=== PATIENT | female | born 1980 | race Caucasian/White ===

== ENCOUNTER 2017-11-10 09:11 | Inpatient (IN) | payer MEDICARE, MEDICAID ==
[2017-11-10] MEDS ORDERED: NORMAL SALINE 1000 ML 1,000 ML IV ONE ×3 (09:42→19:00)
--- NOTE | 2017-11-10 09:47 | ER Document Report ---
ED General - General Stated Complaint: ALTERED LOC Time Seen by Provider: 11/10/17 09:32 Mode of Arrival: Ambulatory Information source: Emergency Med Personnel Cannot obtain history due to: Altered mental status Notes: 36-year-old female presents via EMS after being found in a ditch, altered. They report that a bystander stated to them that she has a seizure history but then quickly left. We have no history of this patient in our system. - HPI Onset: Just prior to arrival - This will be a really quick chart systems - Related Data Allergies/Adverse Reactions: No Known Allergies Allergy (Unverified 11/10/17 16:30) Past Medical History - General Information source: Patient Cannot obtain history due to: Altered mental status - Patient - Social History Smoking Status: Unknown if Ever Smoked Frequency of alcohol use: Heavy Drug Abuse: Methamphetamine Lives with: Alone Family History: Reviewed & Not Pertinent Review of Systems - Review of Systems -: Yes ROS unobtainable due to patient's medical condition Physical Exam - Vital signs Vitals: Resp Pulse Ox 17 96 11/10/17 09:18 11/10/17 09:18 - Notes Notes: PHYSICAL EXAMINATION: GENERAL: Altered, nonverbal HEAD: Atraumatic, normocephalic. EYES: Pupils equal round and reactive to light, conjunctiva are normal. ENT: Nares patent, oropharynx clear without exudates. Moist mucous membranes. NECK: Normal range of motion, supple without lymphadenopathy LUNGS: Breath sounds clear to auscultation bilaterally and equal. No wheezes rales or rhonchi. HEART: Regular rate and rhythm without murmurs ABDOMEN: Soft, nontender, nondistended abdomen. No guarding, no rebound. No masses appreciated. Female : deferred Musculoskeletal: Normal range of motion, no pitting or edema. No cyanosis. NEUROLOGICAL: Somnolent PSYCH: Altered SKIN: Warm, Dry, normal turgor, no rashes or lesions noted. Course - Re-evaluation Re-evalutation: Laboratory 11/10/17 11/10/17 11/10/17 09:49 09:49 09:49 WBC Cancelled RBC Cancelled Hgb Cancelled Hct Cancelled MCV Cancelled MCH Cancelled MCHC Cancelled RDW Cancelled Plt Count Cancelled Seg Neutrophils % Cancelled Lymphocytes % Cancelled Monocytes % Cancelled Eosinophils % Cancelled Basophils % Cancelled Absolute Neutrophils Cancelled Absolute Lymphocytes Cancelled Absolute Monocytes Cancelled Absolute Eosinophils Cancelled Absolute Basophils Cancelled Platelet Estimate Cancelled PT 13.5 INR 0.98 APTT 26.7 Sodium 138.5 Potassium 3.7 Chloride 103 Carbon Dioxide 24 Anion Gap 12 BUN 9 Creatinine 0.55 Est GFR ( Amer) > 60 Est GFR (Non-Af Amer) > 60 Glucose 153 H POC Glucose Calcium 8.7 Total Bilirubin 0.5 Direct Bilirubin 0.4 Neonat Total Bilirubin Not Reportable Neonat Direct Bilirubin Not Reportable Neonat Indirect Bili Not Reportable AST 94 H ALT 80 H Alkaline Phosphatase 57 Creatine Kinase 62 CK-MB (CK-2) Troponin I Total Protein 7.2 Albumin 3.7 Urine HCG, Qual Salicylates < 1.0 L Urine Opiates Screen Urine Methadone Screen Acetaminophen < 10 L Ur Barbiturates Screen Ur Phencyclidine Scrn Ur Amphetamines Screen U Benzodiazepines Scrn Urine Cocaine Screen U Marijuana (THC) Screen Serum Alcohol Slides for Path Review Cancelled 11/10/17 11/10/17 11/10/17 09:49 09:49 09:49 WBC RBC Hgb Hct MCV MCH MCHC RDW Plt Count Seg Neutrophils % Lymphocytes % Monocytes % Eosinophils % Basophils % Absolute Neutrophils Absolute Lymphocytes Absolute Monocytes Absolute Eosinophils Absolute Basophils Platelet Estimate PT INR APTT Sodium Potassium Chloride Carbon Dioxide Anion Gap BUN Creatinine Est GFR ( Amer) Est GFR (Non-Af Amer) Glucose POC Glucose Calcium Total Bilirubin Direct Bilirubin Neonat Total Bilirubin Neonat Direct Bilirubin Neonat Indirect Bili AST ALT Alkaline Phosphatase Creatine Kinase CK-MB (CK-2) Cancelled Troponin I Cancelled Total Protein Albumin Urine HCG, Qual NEGATIVE Salicylates Urine Opiates Screen UNCONFIRMED POSITIVE Urine Methadone Screen NEGATIVE Acetaminophen Ur Barbiturates Screen NEGATIVE Ur Phencyclidine Scrn NEGATIVE Ur Amphetamines Screen U Benzodiazepines Scrn UNCONFIRMED POSITIVE Urine Cocaine Screen NEGATIVE U Marijuana (THC) Screen NEGATIVE Serum Alcohol Slides for Path Review 11/10/17 11/10/17 11/10/17 09:49 10:56 11:02 WBC 2.7 L RBC 3.98 Hgb 10.4 L Hct 32.2 L MCV 81 MCH 26.1 L MCHC 32.2 RDW 20.6 H Plt Count 206 Seg Neutrophils % 66.6 Lymphocytes % 21.9 Monocytes % 10.3 Eosinophils % 0.7 Basophils % 0.5 Absolute Neutrophils 1.8 Absolute Lymphocytes 0.6 Absolute Monocytes 0.3 Absolute Eosinophils 0.0 Absolute Basophils 0.0 Platelet Estimate PT INR APTT Sodium Potassium Chloride Carbon Dioxide Anion Gap BUN Creatinine Est GFR ( Amer) Est GFR (Non-Af Amer) Glucose POC Glucose 138 H Calcium Total Bilirubin Direct Bilirubin Neonat Total Bilirubin Neonat Direct Bilirubin Neonat Indirect Bili AST ALT Alkaline Phosphatase Creatine Kinase CK-MB (CK-2) Troponin I Total Protein Albumin Urine HCG, Qual Salicylates Urine Opiates Screen Urine Methadone Screen Acetaminophen Ur Barbiturates Screen Ur Phencyclidine Scrn Ur Amphetamines Screen U Benzodiazepines Scrn Urine Cocaine Screen U Marijuana (THC) Screen Serum Alcohol < 10 Slides for Path Review 11/10/17 19:37 36-year-old female presents EMS after being found in a day which altered, combative. Bystanders stated that she had a seizure of history and then left. Upon arrival patient is somnolent but arousable. She does not answer questions. She is agitated. Vital signs stable upon arrival. Patient maintaining her airway. GCS 12. No family at the bedside for some time until hours later when her mother and stepfather arrived. They report a history of alcoholism, hepatitis c, seizure history. Patient's vital signs have remained stable. She has a normal heart rate, blood pressure and is not hypoxic. CBC does not show a white count. CMP shows normal renal function. She does have mildly elevated liver enzymes. Patient did receive 1 mg of Ativan early in her ED course and initially thought to be postictal but patient remained somnolent and has been unable to be discharged. CT of the head negative. patient accepted by the hospitalist for altered mental status. 11/10/17 19:37 11/10/17 19:41 11/12/17 23:42 - Vital Signs Vital signs: Temp Pulse Resp BP Pulse Ox 98.0 F 81 18 123/74 100 11/11/17 17:07 11/11/17 17:07 11/11/17 17:07 11/11/17 17:07 11/11/17 17:07 - Laboratory Result Diagrams: 11/11/17 04:46 11/11/17 04:46 Laboratory results interpreted by me: 11/10/17 11/10/17 11/10/17 09:49 10:56 11:02 WBC 2.7 L Hgb 10.4 L Hct 32.2 L MCH 26.1 L RDW 20.6 H Glucose 153 H POC Glucose 138 H AST 94 H ALT 80 H Salicylates < 1.0 L Acetaminophen < 10 L - Diagnostic Test Radiology reviewed: Image reviewed, Reports reviewed Discharge - Discharge Clinical Impression: Polysubstance (excluding opioids) dependence, Seizure, ETOH abuse Altered mental status Qualifiers: Altered mental status type: unspecified Qualified Code(s): R41.82 - Altered mental status, unspecified Condition: Good Disposition: ADMITTED INPATIENT Admitting Provider: Hospitalist Unit Admitted: Telemetry
[2017-11-10] MEDS ORDERED: ONDANSETRON HCL INJ/PF 4 MG/2 ML SDV IV ONE (10:08)
[2017-11-10 10:15] LABS: INTERNATIONAL RATION (INR) 0.98; PARTIAL THROMBOPLASTIN TIME 26.7 SEC (23.5-35.8); PROTHROMBIN TIME 13.5 SEC (11.4-15.4)
[2017-11-10 10:43] LABS: ALANINE AMINOTRANSFERASE 80 U/L (9-52); ALBUMIN 3.7 g/dL (3.5-5.0); ALKALINE PHOSPHATASE 57 U/L (38-126); ANION GAP 12 (5-19); ASPARTATE AMINO TRANSFERASE 94 U/L (14-36); BILIRUBIN,DIRECT 0.4 mg/dL (0.0-0.4); BILIRUBIN,TOTAL 0.5 mg/dL (0.2-1.3); BLOOD UREA NITROGEN 9 mg/dL (7-20); CALCIUM 8.7 mg/dL (8.4-10.2); CARBON DIOXIDE 24 mmol/L (22-30); CHLORIDE 103 mmol/L (98-107); CREATINE KINASE 62 U/L (30-135); GLUCOSE 153 mg/dL (75-110); POTASSIUM 3.7 mmol/L (3.6-5.0); SODIUM 138.5 mmol/L (137-145); TOTAL PROTEIN 7.2 g/dL (6.3-8.2)
[2017-11-10 10:45] LABS: ACETAMINOPHEN < 10 ug/mL (10-30); SALICYLATE < 1.0 mg/dL (2.0-20.0)
--- NOTE | 2017-11-10 10:46 | RADIOLOGY REPORT (SQ) ---
EXAM DESCRIPTION: CHEST SINGLE VIEW COMPLETED DATE/TIME: 11/10/2017 10:35 am REASON FOR STUDY: altered COMPARISON: None. EXAM PARAMETERS: NUMBER OF VIEWS: One view. TECHNIQUE: Single frontal radiographic view of the chest acquired. RADIATION DOSE: NA LIMITATIONS: None. FINDINGS: LUNGS AND PLEURA: No opacities, masses or pneumothorax. No pleural effusion. MEDIASTINUM AND HILAR STRUCTURES: No masses. Contour normal. HEART AND VASCULAR STRUCTURES: Heart normal in size. Normal vasculature. BONES: No acute findings. HARDWARE: None in the chest. OTHER: No other significant finding. IMPRESSION: NO ACUTE RADIOGRAPHIC FINDING IN THE CHEST. TECHNICAL DOCUMENTATION: JOB ID: [id number] [employer]- All Rights Reserved Reading location - IP/workstation name: [email or web address]
--- NOTE | 2017-11-10 10:51 | RADIOLOGY REPORT (SQ) ---
EXAM DESCRIPTION: CT HEAD WITHOUT COMPLETED DATE/TIME: 11/10/2017 10:40 am REASON FOR STUDY: altered COMPARISON: None. TECHNIQUE: Axial images acquired through the brain without intravenous contrast. Images reviewed wi th bone, brain and subdural windows. Additional sagittal and coronal reconstructions were generated. Images stored on PACS. All CT scanners at this facility use dose modulation, iterative reconstruction, and/or weight based d osing when appropriate to reduce radiation dose to as low as reasonably achievable (ALARA). [facility]: Dose Right [facility]: CareDose [facility]: Dose Right [facility]: Teradose 4D [facility]: Impres Medical RADIATION DOSE: CT Rad equipment meets quality standard of care and radiation dose reduction techniq ues were employed. CTDIvol: 53.2 mGy. DLP: 1070 mGy-cm. mGy. LIMITATIONS: None. FINDINGS: VENTRICLES: Normal size and contour. CEREBRUM: No masses. No hemorrhage. No midline shift. No evidence for acute infarction. Normal gra y/white matter differentiation. No areas of low density in the white matter. CEREBELLUM: No masses. No hemorrhage. No alteration of density. No evidence for acute infarction. EXTRAAXIAL SPACES: No fluid collections. No masses. ORBITS AND GLOBE: No intra- or extraconal masses. Normal contour of globe without masses. CALVARIUM: No fracture. PARANASAL SINUSES: Mucosal thickening is identified in both maxillary antra. SOFT TISSUES: No mass or hematoma. OTHER: No other significant finding. IMPRESSION: NORMAL BRAIN CT WITHOUT CONTRAST. EVIDENCE OF ACUTE STROKE: NO. COMMENT: Quality ID # [id number]: Final reports with documentation of one or more dose reduction techniques (e.g., Automated exposure control, adjustment of the mA and/or kV according to patient size, use of iterative reconstruction technique) TECHNICAL DOCUMENTATION: JOB ID: [id number] [employer]- All Rights Reserved Reading location - IP/workstation name: [email or web address]
[2017-11-10 11:03] LABS: URINE BARBITURATES SCREEN NEGATIVE; URINE BENZODIAZEPINES SCREEN UNCONFIRMED POSITIVE; URINE COCAINE SCREEN NEGATIVE; URINE MARIJUANA (THC) SCREEN NEGATIVE; URINE METHADONE SCREEN NEGATIVE; URINE PHENCYCLIDINE SCREEN NEGATIVE
[2017-11-10 11:20] LABS: ABSOLUTE LYMPHOCYTES (AUTO) 0.6 10^3/uL (0.5-4.7); ABSOLUTE MONOCYTES (AUTO) 0.3 10^3/uL (0.1-1.4); ABSOLUTE NEUT (AUTO) 1.8 10^3/uL (1.7-8.2); BASOPHILS % (AUTO) 0.5 % (0-2); EOSINOPHILS % (AUTO) 0.7 % (0-6); HEMATOCRIT 32.2 % (36.0-47.0); HEMOGLOBIN 10.4 g/dL (12.0-15.5); LYMPHOCYTES % (AUTO) 21.9 % (13-45); MEAN CORPUSCULAR HEMOGLOBIN 26.1 pg (27.0-33.4); MEAN CORPUSCULAR HGB CONC 32.2 g/dL (32.0-36.0); MEAN CORPUSCULAR VOLUME 81 fl (80-97); MONOCYTES % (AUTO) 10.3 % (3-13); PLATELET COUNT 206 10^3/uL (150-450); RED BLOOD COUNT 3.98 10^6/uL (3.72-5.28); RED CELL DISTRIBUTION WIDTH 20.6 % (11.5-14.0); SEGMENTED NEUTROPHILS % (AUTO) 66.6 % (42-78); TOTAL CELLS COUNTED % (AUTO) 100 %; WHITE BLOOD COUNT 2.7 10^3/uL (4.0-10.5)
[2017-11-10] MEDS ORDERED: METOCLOPRAMIDE HCL INJ/PF 10 MG/2 ML SDV IV ONE (11:44)
[2017-11-10] MEDS ORDERED: LAMOTRIGINE 100 MG TABLET PO ONE ×2 (12:04→15:00)
[2017-11-10] MEDS ORDERED: LORAZEPAM INJ 2 MG/1 ML VIAL ONE (13:47)
[2017-11-10] MEDS ORDERED: LORAZEPAM INJ 2 MG/1 ML VIAL IV ONE (13:48)
[2017-11-10] MEDS ORDERED: ONDANSETRON HCL INJ/PF 4 MG/2 ML SDV IV PRN (18:37)
[2017-11-10] MEDS ORDERED: ACETAMINOPHEN 650 MG SUPP.RECT PR PRN (18:47)
--- NOTE | 2017-11-10 19:21 | PDOC H&P ---
History of Present Illness Admission Date/PCP: NO PCP Patient complains of: ALTERED MENTAL STATUS History of Present Illness: ROGERIO KNOX is a 36 year old female who presented to [facility] with altered mental status. PMH includes bipolar disorder, ADHD, seizures, anxiety, EtOH dependence, suicide attempt. According to family, the patient was riding in the car with a friend, on her way to a doctor's appointment. The patient fell asleep in the car and when she woke up she began acting erratically. The patient attempted to jump out the car window. When the friend pulled the car over, the patient exited the vehicle and immediately vomited. She subsequently started pulling up the grass and attempting to eat it. Her friend then called EMS. Of note, the patient has history of depression and suicide attempts. Mother reports that the patient recently broke up with her boyfriend 10 days ago and has been living with a friend. The patient has been calling her parents saying that she is depressed, wishes she could stop drinking and "get her life together." According to family, the patient has not recently verbalized suicidal ideation. Family states that the patient is currently taking Adderall , Pristiq, Ativan and Lamictal for her medical problems. However, the patient' s roommate states that he is only aware of the patient taking Lamictal. At this time, unable to locate prescription medication bottles. The patient arrives to the emergency department vomiting. She was stuporous, not unconscious but with a little/no spontaneous activity. Despite her altered mental state, the patient was able to protect her airway. Her vital signs upon arrival were BP 149/93 HR 67 RR 20 T 97.5 SPO2 96% on room air. EKG shows NSR, no evidence of acute ischemia or infarction. Cardiac enzymes normal. Other laboratory studies relatively benign with the exception of mildly elevated liver enzymes (AST 94 ALT 80). UTOX positive for opiates, amphetamines and benzodiazepines. CXR benign. Head CT normal. Upon evaluation, the patient is resting comfortably in bed on room air. Her eyes are closed, she is minimally responsive to verbal and tactile stimuli. She attempts to open her eyes. Does not answer questions. She is able to follow commands with all 4 extremities. PERRLA. LCTA. S1S2. Palpable pulses in upper and lower extremities. No evidence of peripheral edema. Abdomen is soft, nontender, nondistended. There is no evidence of bruising, abrasions, lacerations anywhere. Plan to admit to hospitalist service for altered mental status. Past Medical History EENT Medical History: Reports: None Neurological Medical History: Reports: Seizures Psychiatric Medical History: Reports: Alcohol Dependency, Attention Deficit Hyperactivity Disorder, Bipolar Disorder, Depression, General Anxiety Disorder, Substance Abuse Social History Information Source: Parent Smoking Status: Unknown if Ever Smoked Hx Recreational Drug Use: Yes Drugs: Other - opiates (per UTOX) Hx Prescription Drug Abuse: Yes Past Social History Note: HISTORY OF SUICIDE ATTEMPT. - Advance Directive Resuscitation Status: Full Code Family History Family History: None Parental Family History Reviewed: No Children Family History Reviewed: Unknown Sibling(s) Family History Reviewed.: Unknown Medication/Allergy Allergies/Adverse Reactions: No Known Allergies Allergy (Unverified 11/10/17 16:30) Review of Systems ROS unobtainable: Due to mental status Physical Exam Vital Signs: Temp Pulse Resp BP Pulse Ox 97.5 F 16 109/75 100 11/10/17 09:30 11/10/17 18:01 11/10/17 18:00 11/10/17 18:01 Intake & Output 11/09/17 11/10/17 11/11/17 06:59 06:59 06:59 Intake Total 1000 Balance 1000 Weight 79.379 kg General appearance: PRESENT: no acute distress, well-developed, well-nourished Head exam: PRESENT: atraumatic Eye exam: PRESENT: conjunctiva pink, PERRLA. ABSENT: nystagmus Mouth exam: PRESENT: moist, neck supple, tongue midline Neck exam: PRESENT: full ROM Respiratory exam: PRESENT: clear to auscultation maggy, symmetrical, unlabored Cardiovascular exam: PRESENT: RRR, +S1, +S2 Pulses: PRESENT: normal radial pulses, normal dorsalis pedis pul Vascular exam: PRESENT: normal capillary refill GI/Abdominal exam: PRESENT: normal bowel sounds, soft. ABSENT: tenderness Rectal exam: PRESENT: deferred Extremities exam: PRESENT: full ROM. ABSENT: joint swelling, pedal edema Musculoskeletal exam: PRESENT: ambulatory, full ROM Neurological exam: PRESENT: alert, awake, oriented to person, oriented to place , oriented to time, oriented to situation, reflexes normal Skin exam: PRESENT: dry, intact, normal color, warm Results Laboratory Results: 11/10/17 11:02 11/10/17 09:49 11/10/17 11/10/17 11/10/17 09:49 09:49 11:02 WBC Cancelled 2.7 L RBC Cancelled 3.98 Hgb Cancelled 10.4 L Hct Cancelled 32.2 L MCV Cancelled 81 MCH Cancelled 26.1 L MCHC Cancelled 32.2 RDW Cancelled 20.6 H Plt Count Cancelled 206 Seg Neutrophils % Cancelled 66.6 Lymphocytes % Cancelled 21.9 Monocytes % Cancelled 10.3 Eosinophils % Cancelled 0.7 Basophils % Cancelled 0.5 Absolute Neutrophils Cancelled 1.8 Absolute Lymphocytes Cancelled 0.6 Absolute Monocytes Cancelled 0.3 Absolute Eosinophils Cancelled 0.0 Absolute Basophils Cancelled 0.0 Sodium 138.5 Potassium 3.7 Chloride 103 Carbon Dioxide 24 Anion Gap 12 BUN 9 Creatinine 0.55 Est GFR ( Amer) > 60 Est GFR (Non-Af Amer) > 60 Glucose 153 H Calcium 8.7 Total Bilirubin 0.5 AST 94 H ALT 80 H Alkaline Phosphatase 57 Total Protein 7.2 Albumin 3.7 11/10/17 11/10/17 09:49 09:49 Creatine Kinase 62 CK-MB (CK-2) Cancelled Troponin I Cancelled Impressions: Chest X-Ray 11/10/17 09:39 IMPRESSION: NO ACUTE RADIOGRAPHIC FINDING IN THE CHEST. Head CT 11/10/17 09:39 IMPRESSION: NORMAL BRAIN CT WITHOUT CONTRAST. EVIDENCE OF ACUTE STROKE: NO. Status: Imported from PACS Assessment & Plan - Diagnosis (1) Altered mental status Qualifiers: Altered mental status type: unspecified Qualified Code(s): R41.82 - Altered mental status, unspecified Is this a current diagnosis for this admission?: Yes Plan: Unclear etiology Suspected polysubstance overdose as evidenced by UTOX (+) opiates, amphetamines , benzodiazepines Other differential diagnoses include prolonged postictal state, EtOH withdrawal , infection Head CT normal Lab work relatively benign Admit to telemetry 3 L IVF bolus in ED, continue maintenance IVF If patient remains stuporous in a.m., plan for MRI brain and possible EEG (2) ETOH abuse Is this a current diagnosis for this admission?: Yes Plan: Family endorses history of heavy EtOH use Mother states patient consumes approximately 12 beers per day Patient has been reporting to family members that she "has been trying to cut back" and "wants to go to rehab to get her life together" But alcohol level upon arrival was negligible IV banana bag nightly Daily folate and thiamine (3) Seizure Is this a current diagnosis for this admission?: Yes Plan: Family endorses history of seizure disorder Patient currently taking Lamictal 200 mg per day (according to family) Patient is currently not under the care of a neurologist Unclear if patient exhibited seizure-like activity today prior to arrival No evidence of bite hernandez to tongue or cheek Lamictal level pending If patient remains stuporous/relent tomorrow, plan for EEG (4) Bipolar 1 disorder Is this a current diagnosis for this admission?: Yes Plan: Family endorses history of bipolar disorder Currently under the care of a psychiatrist Currently not taking medication for bipolar disorder - Time Time Spent: 30 to 50 Minutes Critical Time spent with patient: Less than 15 minutes Medications reviewed and adjusted accordingly: Yes Anticipated discharge: Home - Inpatient Certification Based on my medical assessment, after consideration of the patient's comorbidities, presenting symptoms, or acuity I expect that the services needed warrant INPATIENT care.: Yes I certify that my determination is in accordance with my understanding of Medicare's requirements for reasonable and necessary INPATIENT services [42 CFR 412.3e].: Yes Medical Necessity: Need For IV Fluids, Risk of Complication if Not Cared For in Hospital - Plan Summary Plan Summary: Continue IVF. If patient is still stuporous in a.m., plan for MRI brain
--- NOTE | 2017-11-10 22:55 | EKG REPORT ---
SEVERITY:- NORMAL ECG - SINUS RHYTHM : Confirmed by: Jean Murguia 10-Nov-2017 22:53:47
[2017-11-11] MEDS: NORMAL SALINE 1000 ML 1,000 ML IV PRN ×3 (00:51→12:40)
[2017-11-11 05:07] LABS: ABSOLUTE LYMPHOCYTES (AUTO) 1.4 10^3/uL (0.5-4.7); ABSOLUTE MONOCYTES (AUTO) 0.3 10^3/uL (0.1-1.4); BASOPHILS % (AUTO) 0.8 % (0-2); EOSINOPHILS % (AUTO) 0.6 % (0-6); HEMOGLOBIN 9.2 g/dL (12.0-15.5); LYMPHOCYTES % (AUTO) 36.9 % (13-45); MEAN CORPUSCULAR HEMOGLOBIN 26.4 pg (27.0-33.4); MEAN CORPUSCULAR VOLUME 80 fl (80-97); MONOCYTES % (AUTO) 8.3 % (3-13); PLATELET COUNT 208 10^3/uL (150-450); RED CELL DISTRIBUTION WIDTH 20.1 % (11.5-14.0); SEGMENTED NEUTROPHILS % (AUTO) 53.4 % (42-78); TOTAL CELLS COUNTED % (AUTO) 100 %; WHITE BLOOD COUNT 3.7 10^3/uL (4.0-10.5)
[2017-11-11 05:25] LABS: ALANINE AMINOTRANSFERASE 70 U/L (9-52); ALBUMIN 2.7 g/dL (3.5-5.0); ALKALINE PHOSPHATASE 44 U/L (38-126); ANION GAP 6 (5-19); ASPARTATE AMINO TRANSFERASE 53 U/L (14-36); BILIRUBIN,DIRECT 0.3 mg/dL (0.0-0.4); BILIRUBIN,TOTAL 0.4 mg/dL (0.2-1.3); BLOOD UREA NITROGEN 7 mg/dL (7-20); CALCIUM 7.5 mg/dL (8.4-10.2); CARBON DIOXIDE 25 mmol/L (22-30); CHLORIDE 107 mmol/L (98-107); GLUCOSE 83 mg/dL (75-110); POTASSIUM 3.4 mmol/L (3.6-5.0); TOTAL PROTEIN 5.2 g/dL (6.3-8.2)
[2017-11-11] MEDS ORDERED: ENOXAPARIN SODIUM INJ 30 MG/0.3 ML DISP.SYRIN SUBCUT SCH (10:00)
[2017-11-11] MEDS ORDERED: THIAMINE HCL 100 MG, FOLIC ACID 1 MG in NORMAL SALINE 250 ML IV SCH (10:00)
--- NOTE | 2017-11-11 16:02 | PSYCHOLOGICAL NOTE ---
Psych Note - Psych Note Psych Note: Reason for Consult: suspected overdose Patient discloses that he she has no memory of what occurred that brought her to [facility] ED stating "lasting and remembers waking up in the hospital." Patient denies suicidal and homicidal ideation. Patient denies substance abuse and when asked if she would be interested in assistance she reports that she is not interested in receiving any assistance for substance abuse. She discloses that she has an outpatient mental health provider through [facility] in [place]. And reports she has a diagnosis of bipolar and ADHD. Patient denies intentional or accidental overdose stating she believes she had a seizure. Patient is alert and orientated to person, place, time and circumstance. Mood is slightly irritable however still openly engaged with clinician; congruent affect. Patient denies suicidal homicidal ideation. Delusions are absent behaviors congruent with an intact reality based presentation i.e. organized and linear thought process. Eye contact was well-maintained. Conversational speech was within normal rate, tone and prosody. Intellectual ability appears to be within the average range. Attention and concentration are fair. Insight , judgment, impulse control are fair. No medication recommendations at this time 296.80 (F31.9) unspecified bipolar disorder per history provided by patient R/O substance abuse Impression\\plan: Patient is cleared from acute psychiatric services. Patient denies thoughts of wanting to harm herself and reports that she has no history of suicidal ideation. She continued disclosed that she does not have substance abuse issue and is not interested in receiving any assistance currently. Patient has an outpatient mental health provider with [facility] in [place]. Patient does not meet IVC criteria per [place] GS 122C. Dr. Rodrigez was consulted and the care and management this patient; attending physician is agreement with recommendations and disposition.
[2017-11-11 17:10] VITALS: BP 123/74
--- NOTE | 2017-11-12 21:20 | PDOC DISCHARGE SUMMARY ---
General - Admit/Disc Date/PCP Admission Date/Primary Care Provider: 11/10/17 19:37 Discharge Date: 11/11/17 - Discharge Diagnosis (1) Altered mental status Is this a current diagnosis for this admission?: Yes Summary: Resolved; unclear etiology. Continue to suspect polysubstance abuse/overdose as evidenced by U tox positive for opiates, amphetamines, benzodiazepines, in the setting of bipolar 1 disorder and EtOH abuse. Serum alcohol was negative. Although seizure is considered, given the medications administered by EMS, it is difficult if her decreased alertness upon arrival was post ictal versus medication sedation related. Head CT was normal. Initial laboratory workup was benign. The patient was admitted to the medical floor on continuous cardiac telemetry and provided maintenance IV fluids. The following morning, the patient was awake, alert and oriented x4 and at her baseline mental status and personality per close friend who was in the room at the time of my assessment. The patient is requesting to be discharged so that she can begin evacuation plans with her friends/family members. Psychiatry was consulted and did clear the patient from any acute psychiatric needs. They recommend that she follow-up with her established mental health provider as scheduled. At time of discharge, the patient is in stable condition and has returned to her baseline mental status. (2) Bipolar 1 disorder Is this a current diagnosis for this admission?: Yes Summary: Patient to follow-up with her established mental health provider. In-house psychiatry has cleared her from any acute psychiatric needs. (3) ETOH abuse Is this a current diagnosis for this admission?: Yes Summary: The patient's family did endorse a history of heavy EtOH abuse; approximately 12 beers daily. Her family members, she has been attempting to cut back. On admission her serum alcohol level was negative. The patient was supported with IV fluids and supplemental folate and thiamine. She met with psychiatric services but declined assistance with inpatient rehabilitation services. Psychiatry cleared her from any acute psychiatric needs. The patient has not demonstrated evidence of acute alcohol withdrawal symptoms. (4) Seizure Is this a current diagnosis for this admission?: Yes Summary: The patient's family endorse a history of seizure disorder and reports that she is currently taking Lamictal 200 mg daily. Lamotrigine level is appropriate at 19.9 The patient's reported behavior and symptoms prior to arrival are not highly suspicious for seizure-like activity. It is unclear whether her decreased mental status upon arrival was postictal or, more likely, related to the medications administered by EMS services. The patient's mental status rapidly improved overnight and she is currently at her baseline per friends and family members. The patient is requesting to be discharged to home. We discussed the importance of avoiding alcohol, stimulants, recreational drug use, and prescription drug abuse. We also discussed the importance of returning to the emergency department if she has another episode of seizure-like activity. - Additional Information Resuscitation Status: Full Code Discharge Diet: As Tolerated Discharge Activity: Activity As Tolerated, Balance Activity w/Rest, Energy Conservation Home Medications: Unobtainable [Unobtainable] 11/11/17 History of Present Illness History of Present Illness: Per H&P by TREY FrederickC: ROGERIO KNOX is a 36 year old female who presented to [facility] with altered mental status. PMH includes bipolar disorder, ADHD, seizures, anxiety, EtOH dependence, suicide attempt. According to family, the patient was riding in the car with a friend, on her way to a doctor's appointment. The patient fell asleep in the car and when she woke up she began acting erratically. The patient attempted to jump out the car window. When the friend pulled the car over, the patient exited the vehicle and immediately vomited. She subsequently started pulling up the grass and attempting to eat it. Her friend then called EMS. Of note, the patient has history of depression and suicide attempts. Mother reports that the patient recently broke up with her boyfriend 10 days ago and has been living with a friend. The patient has been calling her parents saying that she is depressed, wishes she could stop drinking and "get her life together." According to family, the patient has not recently verbalized suicidal ideation. Family states that the patient is currently taking Adderall , Pristiq, Ativan and Lamictal for her medical problems. However, the patient' s roommate states that he is only aware of the patient taking Lamictal. At this time, unable to locate prescription medication bottles. The patient arrives to the emergency department vomiting. She was stuporous, not unconscious but with a little/no spontaneous activity. Despite her altered mental state, the patient was able to protect her airway. Her vital signs upon arrival were BP 149/93 HR 67 RR 20 T 97.5 SPO2 96% on room air. EKG shows NSR, no evidence of acute ischemia or infarction. Cardiac enzymes normal. Other laboratory studies relatively benign with the exception of mildly elevated liver enzymes (AST 94 ALT 80). UTOX positive for opiates, amphetamines and benzodiazepines. CXR benign. Head CT normal. Upon evaluation, the patient is resting comfortably in bed on room air. Her eyes are closed, she is minimally responsive to verbal and tactile stimuli. She attempts to open her eyes. Does not answer questions. She is able to follow commands with all 4 extremities. PERRLA. LCTA. S1S2. Palpable pulses in upper and lower extremities. No evidence of peripheral edema. Abdomen is soft, nontender, nondistended. There is no evidence of bruising, abrasions, lacerations anywhere. Plan to admit to hospitalist service for altered mental status. Physical Exam Vital Signs: Temp Pulse Resp BP Pulse Ox 98.0 F 81 18 123/74 100 11/11/17 17:07 11/11/17 17:07 11/11/17 17:07 11/11/17 17:07 11/11/17 17:07 Intake & Output 11/11/17 11/12/17 11/13/17 06:59 06:59 06:59 Intake Total 1908 1764 Output Total 0 Balance 1908 1764 Weight 74.6 kg General appearance: PRESENT: no acute distress, well-developed, well-nourished Head exam: PRESENT: atraumatic, normocephalic Eye exam: PRESENT: conjunctiva pink, EOMI, PERRLA. ABSENT: scleral icterus Ear exam: PRESENT: normal external ear exam Mouth exam: PRESENT: moist, tongue midline Neck exam: ABSENT: carotid bruit, JVD, lymphadenopathy, thyromegaly Respiratory exam: PRESENT: clear to auscultation maggy. ABSENT: rales, rhonchi, wheezes Cardiovascular exam: PRESENT: RRR. ABSENT: diastolic murmur, rubs, systolic murmur Pulses: PRESENT: normal dorsalis pedis pul Vascular exam: PRESENT: normal capillary refill GI/Abdominal exam: PRESENT: normal bowel sounds, soft. ABSENT: distended, guarding, mass, organolmegaly, rebound, tenderness Rectal exam: PRESENT: deferred Extremities exam: PRESENT: full ROM. ABSENT: calf tenderness, clubbing, pedal edema Neurological exam: PRESENT: alert, awake, oriented to person, oriented to place , oriented to time, oriented to situation, CN II-XII grossly intact. ABSENT: motor sensory deficit Psychiatric exam: PRESENT: appropriate affect, normal mood. ABSENT: homicidal ideation, suicidal ideation Skin exam: PRESENT: dry, intact, warm. ABSENT: cyanosis, rash Results Laboratory Results: 11/11/17 04:46 11/11/17 04:46 Impressions: Chest X-Ray 11/10/17 09:39 IMPRESSION: NO ACUTE RADIOGRAPHIC FINDING IN THE CHEST. Head CT 11/10/17 09:39 IMPRESSION: NORMAL BRAIN CT WITHOUT CONTRAST. EVIDENCE OF ACUTE STROKE: NO. Qualifiers - * PATIENT BEING DISCHARGED WITH ANY OF THE FOLLOWING DIAGNOSIS: No Plan Discharge Plan: Discharge to home with self-care. Follow-up with primary care provider within 1 week. Follow-up with establish mental health provider as scheduled. Time Spent: Less than 30 Minutes
== END 2017-11-11 17:38 | disposition home or self-care (01) | DRG 897 ==
LOC: ER 09:11 → EH 19:37 → 3N 22:02
PROVIDERS: ADMIT Internal Medicine; ATTEND Internal Medicine
DX: F15.20 Other stimulant dependence, uncomplicated (principal); F19.20 Other psychoactive substance dependence, uncomplicated; R41.82 Altered mental status, unspecified; G40.909 Epilepsy, unspecified, not intractable, without status epilepticus; B19.20 Unspecified viral hepatitis C without hepatic coma; F10.20 Alcohol dependence, uncomplicated; F90.9 Attention-deficit hyperactivity disorder, unspecified type; F31.9 Bipolar disorder, unspecified; Y90.0 Blood alcohol level of less than 20 mg/100 ml; F41.9 Anxiety disorder, unspecified
CPT/HCPCS: 36415; 51701; 70450; 71045; 80053; 80175; 80307; 81025; 82140; 82550; 82962; 84443; 85025; 85610; 85730; 93005; 93010; 96361; 96374; 96375; 99285; G0480; J1650; J2060; J2405; J2765; J3411; J3490; J7030; J7050